=== PATIENT | female | born 1985 | race Caucasian/White ===

== ENCOUNTER 2018-04-17 11:48 | Emergency (ER) | payer OTHER, SELFPAY ==
[2018-04-17 11:50] VITALS: BP 124/78; PULSE 104; RESP 18; TEMP 36.6; O2SAT 97; BMI 26.8
[2018-04-17 12:21] LABS: Color, Urine Yellow (Yellow); Glucose, Dipstick Normal (Normal); Ketone-Dipstick 5 mg/dl (Negative); Leukocyte Esterase-Dipstick 500 /ul (Negative); Nitrite-Dipstick Negative (Negative); Occult Blood-Urine 10 /ul (Negative); Protein-Dipstick 30 mg/dl (Negative); Specific Gravity, Urine 1.025 (1.002-1.030); Urine Bilirubin Dipstick Negative (Negative); Urine Clarity Sl. Cloudy (Clear); Urine Urobilinogen Normal (Normal)
[2018-04-17] MEDS: 0.9% Normal Saline 1,000 ML 1000 ML IV (12:26)
[2018-04-17] MEDS: Phenazopyridine 95 MG Tablet 190 MG PO (12:26)
[2018-04-17] MEDS: Ondansetron 4 MG/2 ML Vial IV (12:26)
[2018-04-17] MEDS: Ketorolac 30 MG/ML Syringe IV (12:26)
[2018-04-17 12:27] LABS: Bacteria 1+ /hpf (None Seen); Mucous, Urine 2+ /hpf (<or=2+); Red Blood Cells-Urine 0-5 SEEN /hpf (0-5); Squamous Epithelial Cells - UA 0-5 SEEN /hpf (5-10); White Blood Cells 25-50 SEEN /hpf (0-5)
--- NOTE | 2018-04-17 12:36 | ED.VISSUMM ---
- ER Visit Summary Date of Service: 04/17/18 Chief Complaint: Dysuria and frequency History of Present Illness: The patient is a 33 F with no primary care physician. She reports she has dysuria and frequency that began 4 days ago. She states she had a fever 2 days ago 102 degrees. She has not had a fever yesterday or today. She reports that she has diffuse abdominal pain began 4 days as well. It is a continuous pain is 4-10 currently and 9 at 10 at worst. Is worsened with movement or touching it. Is relieved by nothing. She reports that she had abdominal pain like this frequently since having hysterectomy. She reports is been nausea and vomited 4 times. No blood or emesis. Her last bowel movement was yesterday. She has had no melena or hematochezia. Physical Examination: Vitals: Stable. Afebrile. General: Well-nourished and well-developed. Head: Normocephalic atraumatic. Neck: Supple, no lymphadenopathy. No JVD. Nontender. Cardiovascular: Regular rate and rhythm. No murmurs. Respiratory: No respiratory distress. Clear to auscultation bilaterally. Abdominal: Soft, mild diffuse tenderness to palpation, nondistended, normal bowel sounds. No guarding, rebound, or peritoneal signs. Back: Mild CVA tenderness bilaterally. Extremities: Nontender, no edema. Skin: Normal color, no rash. Neurologic: Alert and oriented ?3. Cranial nerves II through XII are intact. Normal strength and sensation. Psych: Normal affect. Test Results: CBC is remarkable for segment neutrophils of 72. Chem-7 is normal. UA shows an obvious infection. There is 25-50 white blood cells and 1+ bacteria. There is occult blood, but no red blood cells. Lactic acid is normal. Emergency Department Course and Treatment: Patient had an IV placed. She was given Toradol and Rocephin IV. She was given Azo p.o. Is resting comfortably. Treatment Plan: Patient will be discharged on Keflex. Instructed to follow-up with Dr. Pineda in 3-5 days if not improving. Return to the emergency department for any worsening symptoms. Disposition: To home in improved and stable condition. Impression: 1. UTI. This note was generated with [employer] dictation software. It may contain incorrect words, spelling, and punctuation that were not noted in review of the chart prior to signing ED Disposition - Plan for ED Patient: Chief Complaint: Flank Pain Instructions: ED Kidney Infec Female Prescriptions: Cephalexin [Keflex] 500 mg PO Q12 #14 capsule Phenazopyridine HCl [Pyridium] 200 mg PO TID #10 tablet Referrals: Angela Pnieda DO [STAFF PHYSICIAN] - 3-5 Days if not improving
--- NOTE | 2018-04-17 12:39 | ED.DCSUM_ITS ---
- ER Visit Summary Date of Service: 04/17/18 Chief Complaint: Dysuria and frequency History of Present Illness: The patient is a 33 F with no primary care physician. She reports she has dysuria and frequency that began 4 days ago. She states she had a fever 2 days ago 102 degrees. She has not had a fever yesterday or today. She reports that she has diffuse abdominal pain began 4 days as well. It is a continuous pain is 4-10 currently and 9 at 10 at worst. Is worsened with movement or touching it. Is relieved by nothing. She reports that she had abdominal pain like this frequently since having hysterectomy. She reports is been nausea and vomited 4 times. No blood or emesis. Her last bowel movement was yesterday. She has had no melena or hematochezia. Physical Examination: Vitals: Stable. Afebrile. General: Well-nourished and well-developed. Head: Normocephalic atraumatic. Neck: Supple, no lymphadenopathy. No JVD. Nontender. Cardiovascular: Regular rate and rhythm. No murmurs. Respiratory: No respiratory distress. Clear to auscultation bilaterally. Abdominal: Soft, mild diffuse tenderness to palpation, nondistended, normal bowel sounds. No guarding, rebound, or peritoneal signs. Back: Mild CVA tenderness bilaterally. Extremities: Nontender, no edema. Skin: Normal color, no rash. Neurologic: Alert and oriented ?3. Cranial nerves II through XII are intact. Normal strength and sensation. Psych: Normal affect. Test Results: CBC is remarkable for segment neutrophils of 72. Chem-7 is normal. UA shows an obvious infection. There is 25-50 white blood cells and 1+ bacteria. There is occult blood, but no red blood cells. Lactic acid is normal. Emergency Department Course and Treatment: Patient had an IV placed. She was given Toradol and Rocephin IV. She was given Azo p.o. Is resting comfortably. Treatment Plan: Patient will be discharged on Keflex. Instructed to follow-up with Dr. Pineda in 3-5 days if not improving. Return to the emergency depart ment for any worsening symptoms. Disposition: To home in improved and stable condition. Impression: 1. UTI. This note was generated with [employer] software. It may contain incorrect words, spelling, and punctuation that were not noted in review of the chart prior to signing ED Disposition - Plan for ED Patient: Chief Complaint: Flank Pain Instructions: ED Kidney Infec Female Prescriptions: Cephalexin [Keflex] 500 mg PO Q12 #14 capsule Phenazopyridine HCl [Pyridium] 200 mg PO TID #10 tablet Referrals: Angela Pineda DO [STAFF PHYSICIAN] - 3-5 Days if not improving
[2018-04-17 12:46] LABS: Absolute Lymphocyte Count 1.67 X10^3/ul (0.83-4.51); Basophil# 0.01 X10^3/uL; Basophil% 0.1 % (0-1); Eosinophil# 0.05 X10^3/uL; Eosinophils% 0.7 % (0-5); Hemoglobin 12.9 g/dl (12.0-15.0); Lymphocyte # 1.67 X10^3/ul (4.0); Lymphocyte % 24.1 % (19-41); Mean Corp Hgb Conc 33.1 g/gl (32-36); Mean Corpuscular Hgb 28.9 pg (27.0-32.0); Mean Corpuscular Volume 87.2 fL (81-99); Mean Platelet Vol. 10.6 fl (6.2-12.0); Monocyte# 0.24 X10^3/uL; Monocyte% 3.5 % (0-10); Neutrophil # 4.96 X10^3/uL (2.7-7.7); Neutrophil % 71.6 % (47-70); POSITIVE COUNT NO; POSITIVE DIFFERENTIAL NO; POSITIVE MORPHOLOGY NO; Platelet Count 176 K/mm3 (150-450); RBC Distribution Width CV 12.6 % (11.6-14.6); RBC Distribution Width SD 40.6 fl (35.1-43.9); Red Blood Count 4.47 M/mm3 (4.2-5.4); White Blood Count 6.9 K/mm3 (4.4-11.0)
[2018-04-17 12:52] LABS: Anion Gap 5 (5-15); BUN 11 mg/dL (7-18); BUN/Creat Ratio 13.9 RATIO (10-20); Calcium,Total 8.5 mg/dL (8.5-10.1); Chloride 106 mmol/L (98-107); Creatinine, Serum 0.79 mg/dL (0.55-1.02); EST Glomerular Filtration Rate 88 mL/min (>60); Est Glom Filt Rate - Afr Amer 106 mL/min (>60); Estimated Creatinine Clearance 93.05 ml/min; Glucose 91 mg/dL (74-106); Potassium 3.9 mmol/L (3.5-5.1); Sodium Level 138 mmol/L (136-145)
[2018-04-17] MEDS: Ceftriaxone 1 GM/50 ML BAG IV (12:52)
[2018-04-17 13:04] LABS: Lactic Acid 0.8 mmol/L (0.4-2.0)
[2018-04-17 14:12] VITALS: BP 119/88; PULSE 74; RESP 17; O2SAT 99
--- NOTE | 2018-04-17 14:12 | ED.RN ---
IV DC'ED, CATHETER INTACT, SMALL GAUZE DRESSING PLACED. DISCHARGE INSTRUCTIONS GIVEN TO AND REVIEWED WITH PATIENT, PATIENT DENIES QUESTIONS OR CONCERNS AND VOICES UNDERSTANDING OF DISCHARGE INSTRUCTIONS.
== END 2018-04-17 14:13 | disposition home or self-care (01) ==
LOC: ED 12:27
PROVIDERS: Emergency Provider Emergency Medicine
DX: N39.0 Urinary tract infection, site not specified (principal); R11.2 Nausea with vomiting, unspecified; R10.84 Generalized abdominal pain; Z90.710 Acquired absence of both cervix and uterus
CPT/HCPCS: 80048; 81001; 83605; 85025; 87086; 87088; 96361; 96365; 96375; 99284; J7030; J2405

== ENCOUNTER 2022-07-17 16:05 | Emergency (ER) | payer OTHER, SELFPAY ==
[2022-07-17 16:06] VITALS: BP 120/72; PULSE 61; RESP 16; TEMP 36.6; O2SAT 98; BMI 29.5
--- NOTE | 2022-07-17 16:28 | CT_ITS ---
STUDY: CT ABDOMEN AND PELVIS WITHOUT CONTRAST REASON FOR EXAM: Female, 37 years old. Kidney Stone-LEFT FLANK PAIN. TOTAL HYSTERECTOMY AND CHOLECYSTECTOMY RADIATION DOSAGE (If Supplied By Facility): CTDIvol = ( 12.08 ) mGy, DLP = ( 582.90 ) mGycm TECHNIQUE: Transaxial images were obtained from the dome of the diaphragm to the symphysis pubis without oral contrast, and without intravenous contrast. Sagittal and coronal images were reconstructed. Individualized dose optimization techniques were used for this CT. COMPARISON: None. FINDINGS: The visualized lung bases are unremarkable. The visualized portions of the heart are within normal limits. Liver is normal size. There are small hypoattenuated density in the medial segment of left lobe measuring approximately 10.4 x 10 mm indeterminate etiology possibly hemangioma. Gallbladder not visualized consistent with cholecystectomy.. Normal spleen. Normal pancreas. Normal bilateral adrenal glands. Normal right kidney. Normal left kidney. Normal visualized stomach. Minor ileus with diffuse fecal retention in the colon. No evidence for small bowel obstruction. . The appendix is visualized and appears normal. Normal abdominal aorta. Normal inferior vena cava. Normal retroperitoneum. Uterus not visualized status post hysterectomy Poorly distended thick walled bladder of indeterminate significance. Normal abdominal wall. Normal osseous structures. CT/Abdomen/Pelvis without Cont IMPRESSION: No evidence for renal obstruction or ureteral calculus or mass. Minor ileus with diffuse fecal retention in colon but no evidence for small bowel obstruction.. Incompletely distended thick walled bladder of uncertain significance. Postop change status post cholecystectomy and hysterectomy Electronically Signed: Omar Schwartz MD at 17:25 EST ,
--- NOTE | 2022-07-17 16:28 | ED.VIS.FEGU ---
HPI HPI - Female History of Present Illness Chief Complaint: Flank Pain Narrative Narrative: 37-year-old female presenting with flank pain. She states its been present for about 2 weeks. She states he has been seen by urgent care twice and was on Pyridium and on Keflex. She does describe a little bit of dysuria. Has not had fever, chills, nausea, vomiting. No history of kidney stones. No constipation or diarrhea. PFSH PFSH Home Medications cephalexin 500 mg capsule 500 mg PO Q12 ##14 04/17/18 [Rx Last Taken Unknown] phenazopyridine 200 mg tablet (Pyridium) 200 mg PO TID ##10 04/17/18 [Rx Last Taken Unknown] Allergy/AdvReac Type Severity Reaction Status Date / Time No Known Allergies Allergy Verified 07/17/22 16:06 Social History Smoking Status: Never smoker ROS ROS ED Constitutional Constitutional ED: Denies chills or fever(s) Eyes Eyes: Denies change in vision ENT ENT ED: Denies rhinorrhea or sore throat Cardiovascular Cardiovascular: Denies chest pain or palpitations Respiratory/Chest Respiratory/Chest: Denies cough or dyspnea Gastrointestinal Gastrointestinal: Denies constipation or diarrhea Genitourinary Genitourinary ED: Reports dysuria Musculoskeletal Musculoskeletal: Reports other Details: Left-sided flank pain ; Denies arthralgias Integumentary Denies abscess or Abrasions Neurologic Neurologic: Denies headache(s) or paresthesias Psychiatric Psychiatric: Denies anxiety or depression EXAM Physical Exam Const Vital Signs: 07/17/22 16:06 07/17/22 16:05 07/17/22 18:05 Temperature 97.8 F Temperature Source Temporal Pulse Rate 61 69 Respiratory Rate 16 15 Respiratory Effort Normal Non-Labored Respiratory Pattern Normal Blood Pressure 120/72 Blood Pressure Mean 88 Pulse Ox 98 99 Oxygen Delivery Method Room Air Positive well nourished General Appearance ED: NAD HEENT Reports TM's clear and moist mucous membranes Tympanic Membrane ED: Yes TM's clear Eyes PERRL and EOMs intact bilaterally Chest Wall inspection of chest normal and palpation of chest normal Resp normal respiratory effort and clear to auscultation bilaterally Auscultation: Negative for rales, rhonchi or wheezes Cardio regular rate and regular rhythm GI normal to inspection, nondistended, normoactive bowel sounds Back/Spine General Back: CVA tenderness left Lumbar Spine / Lower Back: Negative for lumbar spinal tenderness Extremity normal to inspection Neuro oriented x3 and CN's II-XII intact bilaterally Sensorium / Orientation: alert Motor Exam: strength 5/5 throughout Psych mental status grossly normal Skin no rashes or lesions noted and no wounds MDM MDM MDM Narrative Medical decision making narrative: Patient presenting with left-sided abdominal pain. She is concerned she has a UTI. She is on 2 rounds of antibiotics. No history of kidney stone. CBC was obtained to assess for white blood cell count, hemoglobin level, differential. This is normal. BMP to assess renal function and electrolytes and other than slight prerenal azotemia this is within normal limits as well. Glucose is 93 without anion gap. Urinalysis negative for infection or occult blood. I did obtain a CT of the abdomen pelvis due to persistency of her pain and this is interpreted as ileus and diffuse fecal retention. Patient was counseled on findings. I recommended she follow-up with her PCP to ensure resolution which point she states she does not have 1. She was given somebody to follow-up with. Lab Data Attestation: I reviewed the patient's lab results. Labs: Laboratory Results - last 24 hr 07/17/22 07/17/22 07/17/22 16:49 16:49 16:53 WBC 6.7 RBC 4.43 Hgb 12.7 Hct 39.3 MCV 88.7 MCH 28.7 MCHC 32.3 RDW Std Deviation 40.8 RDW Coeff of Gerald 12.6 Plt Count 222 MPV 10.6 Immature Gran % (Auto) 0.300 Neut % (Auto) 62.1 Lymph % (Auto) 28.5 [place] % (Auto) 6.7 Eos % (Auto) 2.1 Baso % (Auto) 0.3 Absolute Neuts (auto) 4.2 Absolute Lymphs (auto) 1.91 Nucleated RBC % 0 Sodium 141 Potassium 4.2 Chloride 107 Carbon Dioxide 27.0 Anion Gap 7 BUN 18 Creatinine 0.84 Estim Creat Clear Calc 84.18 Est GFR (MDRD) Af Amer 97 Est GFR (MDRD) Non-Af 80 BUN/Creatinine Ratio 21.4 H Glucose 93 Calcium 9.1 Urine Color Yellow Urine Clarity Clear Urine pH 6.0 Ur Specific [place] 1.025 Urine Protein 15 H Urine Glucose (UA) Normal Urine Ketones 5 H Urine Occult Blood Negative Urine Nitrite Negative Urine Bilirubin Negative Urine Urobilinogen Normal Ur Leukocyte Esterase 25 H Urine RBC 0-5 SEEN Urine WBC 0 SEEN Ur Squamous Epith Cells 0-5 SEEN Urine Bacteria 0 SEEN Urine Mucus 0 SEEN Radiography Diagnostic Testing: Clinical Impression(s) from Imaging Studies Abdomen/Pelvis CT 07/17/22 16:28 IMPRESSION: No evidence for renal obstruction or ureteral calculus or mass. Minor ileus with diffuse fecal retention in colon but no evidence for small bowel obstruction.. Incompletely distended thick walled bladder of uncertain significance. Postop change status post cholecystectomy and hysterectomy Electronically Signed: Omar Schwartz MD at 17:25 EST Reading Location ID and State: [facility] / [place] , Service support , Discharge Plan Triage Chief Complaint: Flank Pain ED Provider: Tomy Dumont Dx/Rx/DC Orders Instructions: ED Flank Pain, Uncertain Cause Prescriptions: No Action phenazopyridine [Pyridium] 200 MG tablet 200 mg PO TID Qty: 10 0RF cephalexin 500 MG capsule 500 mg PO Q12 Qty: 14 0RF Primary Care Provider: Care Physician,No Primary Referrals: Jo Shah MD [Med Staff - Active Staff] - 3-5 Days Care Physician,No Primary [Primary Care Provider] - Disposition Disposition: Home, Self Care Discharge Date/Time: 07/17/22 18:12
[2022-07-17] MEDS: Ketorolac 15 MG/ML Vial IV (16:50)
[2022-07-17 17:03] LABS: Bacteria 0 SEEN /hpf (None Seen); Mucous, Urine 0 SEEN /hpf (<or=2+); White Blood Cells 0 SEEN /hpf (0-5)
[2022-07-17 17:14] LABS: Color, Urine Yellow (Yellow); Glucose, Dipstick Normal (Normal); Ketone-Dipstick 5 mg/dl (Negative); Leukocyte Esterase-Dipstick 25 /ul (Negative); Nitrite-Dipstick Negative (Negative); Occult Blood-Urine Negative /ul (Negative); Protein-Dipstick 15 mg/dl (Negative); Specific Gravity, Urine 1.025 (1.002-1.030); Urine Bilirubin Dipstick Negative (Negative); Urine Clarity Clear (Clear); Urine Urobilinogen Normal (Normal)
[2022-07-17 17:21] LABS: Squamous Epithelial Cells - UA 0-5 SEEN /hpf (5-10)
[2022-07-17 17:22] LABS: Red Blood Cells-Urine 0-5 SEEN /hpf (0-5)
[2022-07-17 17:28] LABS: Absolute Lymphocyte Count 1.91 X10^3/uL (0.83-4.51); Absolute Neutrophil Count 4.2 X10^3/uL (2.0-7.7); Anion Gap 7 (5-15); BUN 18 mg/dL (7-18); BUN/Creat Ratio 21.4 RATIO (10-20); Basophil# 0.02 X10^3/uL; Basophil% 0.3 % (0-1); Calcium,Total 9.1 mg/dL (8.5-10.1); Chloride 107 mmol/L (98-107); Creatinine, Serum 0.84 mg/dL (0.55-1.02); EST Glomerular Filtration Rate 80 mL/min (>60); Eosinophil# 0.14 X10^3/uL; Eosinophils% 2.1 % (0-5); Est Glom Filt Rate - Afr Amer 97 mL/min (>60); Estimated Creatinine Clearance 84.18 ml/min; Glucose 93 mg/dL (74-106); Hematocrit 39.3 % (37-47); Hemoglobin 12.7 g/dL (12.0-15.0); Lymphocyte # 1.91 X10^3/ul (0.83-4.51); Lymphocyte % 28.5 % (19-41); Mean Corp Hgb Conc 32.3 g/dL (32-36); Mean Corpuscular Hgb 28.7 pg (27.0-32.0); Mean Corpuscular Volume 88.7 fL (81-99); Mean Platelet Vol. 10.6 fl (6.2-12.0); Monocyte# 0.45 X10^3/uL; Monocyte% 6.7 % (0-10); NRBC Flagged by Analyzer 0 % (0-5); Neutrophil # 4.17 X10^3/uL (2.7-7.7); Neutrophil % 62.1 % (47-70); Platelet Count 222 K/mm3 (150-450); Potassium 4.2 mmol/L (3.5-5.1); RBC Distribution Width CV 12.6 % (11.6-14.6); RBC Distribution Width SD 40.8 fl (35.1-43.9); Red Blood Count 4.43 M/mm3 (4.2-5.4); Sodium Level 141 mmol/L (136-145); White Blood Count 6.7 K/mm3 (4.4-11.0)
[2022-07-17 18:05] VITALS: PULSE 69; RESP 15; O2SAT 99
== END 2022-07-17 18:12 | disposition home or self-care (01) ==
PROVIDERS: Emergency Provider Student in an Organized Health Care Education/Training Program; Visit Provider Student in an Organized Health Care Education/Training Program
DX: R10.9 Unspecified abdominal pain (principal); K56.7 Ileus, unspecified
CPT/HCPCS: 74176; 80048; 81001; 85025; 87086; 96374; 99282; A4216